=== PATIENT | female | born 1940 | race Caucasian/White ===

== ENCOUNTER 2016-09-29 18:30 | Emergency (ER) | payer OTHER, MEDICAID ==
[~2016-09-29] VITALS: Ht 154.9 cm; Wt 90.7 kg
[~2016-09-29 18:30] MED LIST: ACTOS30 MG; FOLIC ACID 1 MG; LACTULOSE; LORATADINE 10MG; METOPROLOL50 M1 PO; PIOGLITAZONE 30 MG; PROPRANOLOL 20 MG; VICODIN 5/500 M1 TAB PO; [UNRECOGNIZED DRUG - REMARK]; [UNRECOGNIZED DRUG - REMARK]
[2016-09-29 19:30] VITALS: BP 155/79
--- NOTE | 2016-09-29 19:49 | NUR ---
PT TAKEN TO BED 5
--- NOTE | 2016-09-29 20:00 | NUR ---
76 yo female PATIENT PRESENTS TO ED WITH neck pain x2 days, productive cough . DENIES N/V/D; SKIN IS PINK/WARM/DRY; AAOX4 WITH EVEN AND STEADY GAIT; LUNGS CLEAR BL; HR EVEN AND REGULAR; PT DENIES ANY FEVER, CP, SOB, AT THIS TIME; PATIENT STATES PAIN OF 7/10 AT THIS TIME; VSS; PATIENT POSITIONED FOR COMFORT; HOB ELEVATED; BEDRAILS UP X2; BED DOWN. ER MD MADE AWARE OF PT STATUS.
--- NOTE | 2016-09-29 20:10 | NUR ---
PT TAKEN TO CT
--- NOTE | 2016-09-29 20:21 | NUR ---
PT RETURN FROM CT
--- NOTE | 2016-09-29 21:17 | NUR ---
Dr. Schwartz evaluating patient at bedside.
[2016-09-29] MEDS ORDERED: ALBUTEROL 0.083% 2.5 MG/3 ML NEBU INH ONE (21:25)
[2016-09-29] MEDS ORDERED: KETOROLAC 60 MG/2 ML VIAL IM ONE (21:25)
[2016-09-29 22:41] VITALS: BP 153/75
--- NOTE | 2016-09-29 22:42 | NUR ---
Patient discharged with v/s stable. Written and verbal after care instructions given and explained. Patient alert, oriented and verbalized understanding of instructions. Ambulatory with steady gait. All questions addressed prior to discharge. ID band removed. Patient advised to follow up with PMD. Rx of AMOXICIIN 5OOMG, TRAMADOL 50MG PO given. Patient educated on indication of medication including possible reaction and side effects. Opportunity to ask questions provided and answered.
== END 2016-09-29 22:42 | disposition home or self-care (01) ==
LOC: MED 18:30
DX: M43.6 Torticollis (principal); J44.9 Chronic obstructive pulmonary disease, unspecified; I10 Essential (primary) hypertension; J45.909 Unspecified asthma, uncomplicated; E11.9 Type 2 diabetes mellitus without complications; K21.9 Gastro-esophageal reflux disease without esophagitis
CPT/HCPCS: 71250; 72125; 94640; 94664; 96372; 99284; J1885; J7613

== ENCOUNTER 2018-01-03 19:56 | Emergency (ER) | payer OTHER, MEDICAID ==
[~2018-01-03] VITALS: Ht 152.4 cm; Wt 77.1 kg
[~2018-01-03 19:56] MED LIST changes: -ACTOS30 MG; -FOLIC ACID 1 MG; -LACTULOSE; -LORATADINE 10MG; -METOPROLOL50 M1 PO; -PIOGLITAZONE 30 MG; -PROPRANOLOL 20 MG; +VIC PO; -VICODIN 5/500 M1 TAB PO; -[UNRECOGNIZED DRUG - REMARK]; -[UNRECOGNIZED DRUG - REMARK]
[2018-01-03 20:09] VITALS: BP 103/77
--- NOTE | 2018-01-03 20:13 | NUR ---
TO LOBBY A/W BED, AKILAH, VSS. PATIENT WAS GIVEN A URINE CUP
--- NOTE | 2018-01-03 21:02 | NUR ---
TO ER BED 3
--- NOTE | 2018-01-03 21:20 | NUR ---
PATIENT PRESENTS TO ED WITH LOWER BACK AND FLANK PAIN X3 DAYS . PT DENIES N/V/D; SKIN IS PINK/WARM/DRY; AAOX4 WITH EVEN AND STEADY GAIT; LUNGS CLEAR BL; HR EVEN AND REGULAR; PT DENIES ANY FEVER, CP, SOB, OR COUGH AT THIS TIME; PATIENT STATES PAIN OF 7/10 AT THIS TIME; VSS; PATIENT POSITIONED FOR COMFORT; HOB ELEVATED; BEDRAILS UP X1; BED DOWN. ER MD MADE AWARE OF PT STATUS.
[2018-01-03] MEDS ORDERED: DIAZEPAM 5 MG TAB PO ONE (21:35)
[2018-01-03] MEDS ORDERED: KETOROLAC 30 MG/ML VIAL IM ONE (21:35)
[2018-01-03 22:42] LABS: ALBUMIN 3.8 g/dL (3.4-5.0); ANION GAP 10.6 (8-16); ASPARTATE AMINOTRANSFERASE 15 U/L (15-37); CARBON DIOXIDE 27.5 mmol/L (21-32); CHLORIDE 106 mmol/L (98-107); CREATININE 1.1 mg/dL (0.6-1.3); GLUCOSE 114 mg/dL (74-106); POTASSIUM 4.1 mmol/L (3.5-5.1); SODIUM SERUM 140 mmol/L (136-145); TOTAL BILIRUBIN 0.1 mg/dL (0.0-1.0); UREA NITROGEN, BLOOD 14 mg/dL (7-18)
[2018-01-03] MEDS ORDERED: HYDROcodone/APAP 5/325 MG 1 TAB TAB PO ONE (23:05)
[2018-01-04 00:15] VITALS: BP 100/52
--- NOTE | 2018-01-04 00:15 | NUR ---
Patient discharged with v/s stable. Written and verbal after care instructions given and explained. Patient alert, oriented and verbalized understanding of instructions. Ambulatory with steady gait. All questions addressed prior to discharge. ID band removed. Patient advised to follow up with PMD. Rx of COLACE, NORCO given. Patient educated on indication of medication including possible reaction and side effects. Opportunity to ask questions provided and answered.
== END 2018-01-04 00:14 | disposition home or self-care (01) ==
LOC: MED 19:56
DX: G89.29 Other chronic pain (principal); M54.5 Low back pain; M13.861 Other specified arthritis, right knee; J45.909 Unspecified asthma, uncomplicated; E11.9 Type 2 diabetes mellitus without complications; K21.9 Gastro-esophageal reflux disease without esophagitis; I10 Essential (primary) hypertension; Z90.49 Acquired absence of other specified parts of digestive tract; Z79.899 Other long term (current) drug therapy
CPT/HCPCS: 36415; 72131; 73562; 80053; 96372; 99285; J1885; Q0092

== ENCOUNTER 2018-05-27 19:59 | Emergency (ER) | payer OTHER, MEDICAID ==
[~2018-05-27] VITALS: Ht 149.9 cm; Wt 81.6 kg
[2018-05-27 20:01] VITALS: BP 151/76
--- NOTE | 2018-05-27 20:08 | NUR ---
PT TAKEN TO BED 1
--- NOTE | 2018-05-27 21:06 | NUR ---
PT BIB SELF C/O HIGH BLOOD PRESSURE AND NECK PAIN SINCE THIS AM. PT DENIES N/V/D, OR VISION CHANGES. PT IS AWAKE AND LAYING IN BED W/ FAMILY AT BEDSIDE. PT STATES SHE HAS HOME HEALTH NURSE WHO COMES TO TAKE HER BP AND GIVE HER MEDS AND NURSE REFERRED HER TO ER. PT STATES SHE TOOK HER MEDS TODAY. PMH HTN
[2018-05-27] MEDS ORDERED: KETOROLAC 60 MG/2 ML VIAL IM ONE (21:25)
--- NOTE | 2018-05-27 22:00 | NUR ---
PT STATES SHE HAS PAIN RELIEF, 09/27 AT THIS TIME, ER MD MADE AWARE.
[2018-05-27 22:35] VITALS: BP 142/62
== END 2018-05-27 22:32 | disposition home or self-care (01) ==
LOC: MED 19:59
DX: S13.9XXA Sprain of joints and ligaments of unspecified parts of neck, initial encounter (principal); J45.909 Unspecified asthma, uncomplicated; K21.9 Gastro-esophageal reflux disease without esophagitis; E11.9 Type 2 diabetes mellitus without complications; I10 Essential (primary) hypertension; Z79.1 Long term (current) use of non-steroidal anti-inflammatories (NSAID); X58.XXXA Exposure to other specified factors, initial encounter; Y93.89 Activity, other specified; Y92.89 Other specified places as the place of occurrence of the external cause; Y99.8 Other external cause status
CPT/HCPCS: 96372; 99283; J1885

== ENCOUNTER 2019-03-27 22:06 | Emergency (ER) | payer OTHER, MEDICAID ==
[~2019-03-27] VITALS: Ht 149.9 cm; Wt 73.5 kg
[2019-03-27 22:10] VITALS: BP 120/76
--- NOTE | 2019-03-27 22:15 | NUR ---
PT TAKEN TO BED 8
--- NOTE | 2019-03-27 22:35 | NUR ---
Dr. Scott examining patient.
--- NOTE | 2019-03-27 22:54 | NUR ---
PT WENT TO CT
[2019-03-27] MEDS ORDERED: KETOROLAC 30 MG/ML VIAL IM ONE (22:55)
[2019-03-27] MEDS ORDERED: DIAZEPAM 5 MG TAB PO ONE (22:55)
--- NOTE | 2019-03-27 23:08 | NUR ---
PT RETURN FROM CT
[2019-03-27 23:11] LABS: APPEARANCE,URINE CLEAR (CLEAR); BILIRUBIN,URINE NEGATIVE (NEGATIVE); BLOOD, URINE TRACE-L (NEGATIVE); COLOR,URINE YELLOW (YELLOW); LEUKOCYTE ESTERASE ,URINE NEGATIVE (NEGATIVE); NITRITE, URINE NEGATIVE (NEGATIVE); PH,URINE 5.5 (5.0-9.0); UGLUCOSE NEGATIVE (NEGATIVE)
[2019-03-27 23:25] LABS: RBC,URINE 0-5 /HPF (0-5); WBC,URINE 0-5 /HPF (0-5)
[2019-03-28 00:34] VITALS: BP 122/68
--- NOTE | 2019-03-28 00:34 | NUR ---
DISCHARGE PAPERS GIVEN TO PT. PT STATES PAIN DECREASED 4/10 AND TOLLERABLE. VSS. RX OF VALIUM GIVEN. SIDE EFFECTS EXPLAINED. INSTRUCTED TO F/U WITH PCP AND WHEN TO RETURN TO ER. PT VERBALLIZED UNDERSTANDING OF DC INSTRUCTIONS. ALL QUESTIONS ANSWERED.
== END 2019-03-28 00:34 | disposition home or self-care (01) ==
LOC: MED 22:06
DX: M54.5 Low back pain (principal); R10.84 Generalized abdominal pain; J45.909 Unspecified asthma, uncomplicated; E11.9 Type 2 diabetes mellitus without complications; K21.9 Gastro-esophageal reflux disease without esophagitis; I10 Essential (primary) hypertension; Z79.899 Other long term (current) drug therapy
CPT/HCPCS: 74176; 81001; 87086; 96372; 99284; J1885

== ENCOUNTER 2019-05-04 18:23 | Emergency (ER) | payer OTHER, MEDICAID ==
[~2019-05-04] VITALS: Ht 149.9 cm; Wt 74.0 kg
[2019-05-04 18:28] VITALS: BP 186/92
[2019-05-04] MEDS ORDERED: KETOROLAC 30 MG/ML VIAL IM ONE (20:10)
[2019-05-04 20:40] VITALS: BP 145/73
== END 2019-05-04 20:41 | disposition home or self-care (01) ==
LOC: MED 18:23
DX: N30.90 Cystitis, unspecified without hematuria (principal); K21.9 Gastro-esophageal reflux disease without esophagitis; I10 Essential (primary) hypertension; Z86.79 Personal history of other diseases of the circulatory system; Z79.1 Long term (current) use of non-steroidal anti-inflammatories (NSAID)
CPT/HCPCS: 96372; 99283; J1885

== ENCOUNTER 2019-07-20 21:24 | Emergency (ER) | payer OTHER, MEDICAID ==
[~2019-07-20] VITALS: Ht 149.9 cm; Wt 66.7 kg
[2019-07-20 21:30] VITALS: BP 133/80
--- NOTE | 2019-07-20 21:33 | NUR ---
TO LOBBY A/W BED AMBULATORY
--- NOTE | 2019-07-20 22:21 | NUR ---
78 Y/O MALE PRESENTS TO ED, C/O RIGHT BIG TOE PAIN 02/24. PT STATES SEEING [employer]IP [employer] 2 WEEKS AGO AND HAD INGROWN TOENAIL REMOVED ON RIGHT BIG TOE. PT STATES PAIN WORSENED AFTER PROCEDURE. NOTABLE REDNESS AND SWELLING ON AFFECTED TOE; WARM TO TOUCH. PT TOOK TWO TYLENOLS 1 HR PRIOR TO ARRIVAL TO ED; INEFFECTIVE. PT ABLE TO AMBULATE WITH SLOW STEADY GAIT. PT AT STABLE CONDITION. ERMD AWARE. WILL CONTINUE TO MONITOR.
[2019-07-20 22:30] VITALS: BP 138/67
--- NOTE | 2019-07-20 22:30 | NUR ---
PT DISCHARGED WITH PAPERWORK. RX KEFLEX. EDUCATED PT REGARDING MEDICATION. EDUCATED PT REGARDING D/C DIAGNOSIS AND INSTRUCTIONS. PT VERBALIZED UNDERSTANDING OF TEACHING. TOLD PT TO FOLLOW UP WITH PCP AND WHEN TO RETURN TO ED. PT AT STABLE CONDITION. PT STATES SOME PAIN RELIEF AFTER PROCEDURE. PT ABLE TO AMBULATE WITH SLOW STEADY GAIT. ALL QUESTIONS ANSWERED.
== END 2019-07-20 22:30 | disposition home or self-care (01) ==
LOC: MED 21:24
DX: L60.0 Ingrowing nail (principal); L03.031 Cellulitis of right toe; J45.909 Unspecified asthma, uncomplicated; K21.9 Gastro-esophageal reflux disease without esophagitis; I10 Essential (primary) hypertension; Z79.899 Other long term (current) drug therapy
CPT/HCPCS: 11730; 99283

== ENCOUNTER 2019-09-25 07:19 | Emergency (ER) | payer OTHER, MEDICAID ==
[~2019-09-25] VITALS: Ht 149.9 cm; Wt 68.9 kg
[2019-09-25 07:23] VITALS: BP 143/82
--- NOTE | 2019-09-25 07:35 | NUR ---
AAO X4 PT AMBULATE TO BED 8 BIB W/ C/O RIGHT BIG TOE PAIN S/P INGROWN TOENAIL REMOVAL X 5 DAYS IN [place] IN A DOCTORS OFFICE. PER PT TOOK PRESCRIBED IBUPROFEN W/O RELIEF AND UNABLE TO SLEEP D/T PAIN. RT TOE DISCOLORATION NOTED. MED HX: ASTHMA, CARDIAC DISORDER, GERD,HTN
[2019-09-25] MEDS ORDERED: traMADol 50 MG TAB PO ONE (08:15)
[2019-09-25 09:00] VITALS: BP 148/78
--- NOTE | 2019-09-25 09:00 | NUR ---
Patient discharged with v/s stable. Written and verbal after care instructions given and explained. Patient alert, oriented and verbalized understanding of instructions. Ambulatory with steady gait. All questions addressed prior to discharge. ID band removed. Patient advised to follow up with PMD. Rx of Ultram given. Patient educated on indication of medication including possible reaction and side effects. Opportunity to ask questions provided and answered. Pt accompanied by .
== END 2019-09-25 09:00 | disposition home or self-care (01) ==
LOC: MED 07:19
DX: G89.18 Other acute postprocedural pain (principal); M79.675 Pain in left toe(s); J45.909 Unspecified asthma, uncomplicated; K21.9 Gastro-esophageal reflux disease without esophagitis; I10 Essential (primary) hypertension; Z79.899 Other long term (current) drug therapy
CPT/HCPCS: 99283

== ENCOUNTER 2021-05-20 23:36 | Emergency (ER) | payer OTHER, MEDICAID ==
[~2021-05-20] VITALS: Ht 154.9 cm; Wt 74.8 kg
[2021-05-20 23:49] VITALS: BP 153/77
--- NOTE | 2021-05-21 00:26 | NUR ---
PT TAKEN TO BED 1
[2021-05-21] MEDS ORDERED: METOCLOPRAMIDE 10 MG/2 ML INJ VIAL IVP ONE (01:05)
[2021-05-21] MEDS ORDERED: diphenhydrAMINE 50 MG/ML VIAL IVP ONE (01:05)
[2021-05-21] MEDS ORDERED: NACL 0.9% 500 ML IV ONE (01:05)
[2021-05-21 01:20] LABS: BASOPHILS # (AUTO) 0.1 K/uL (0.00-0.22); EOSINOPHILS # (AUTO) 0.3 K/uL (0-0.4); EOSINOPHILS % (AUTO) 5.3 % (0.0-4.0); HEMATOCRIT 34.3 % (36-48); HEMOGLOBIN 11.6 g/dL (12.0-16.0); LYMPHOCYTES # (AUTO) 1.6 K/uL (2.5-16.5); LYMPHOCYTES % (AUTO) 27.9 % (20.5-51.1); MEAN CORPUSCULAR HEMOGLOBIN 33 pg (27-31); MEAN CORPUSCULAR HGB CONC 34 g/dL (33-37); MONOCYTES # (AUTO) 0.2 K/uL (0.8-1.0); MONOCYTES % (AUTO) 4.1 % (1.7-9.3); NEUTROPHILS # (AUTO) 3.5 K/uL (1.8-7.7); NEUTROPHILS % (AUTO) 60.7 % (42.2-75.2); PLATELET COUNT (AUTO) 249 K/uL (140-450); RED BLOOD CELL COUNT(AUTO) 3.54 MIL/uL (4.20-5.40); RED CELL DISTRIBUTION WIDTH 13.3 % (11.6-13.7); WHITE BLOOD COUNT (AUTO) 5.7 K/uL (4.8-10.8)
[2021-05-21 01:33] LABS: ALBUMIN 3.7 g/dL (3.4-5.0); ANION GAP 11.3 (8-16); ASPARTATE AMINOTRANSFERASE 18 U/L (15-37); CARBON DIOXIDE 28.1 mmol/L (21-32); CHLORIDE 106 mmol/L (98-107); CREATININE 1.2 mg/dL (0.6-1.3); GLUCOSE 123 mg/dL (74-106); POTASSIUM 3.4 mmol/L (3.5-5.1); SODIUM SERUM 142 mmol/L (136-145); TOTAL BILIRUBIN 0.2 mg/dL (0.0-1.0); UREA NITROGEN, BLOOD 14 mg/dL (7-18)
--- NOTE | 2021-05-21 01:49 | NUR ---
patient ambulated to the bathroom for urine collection
[2021-05-21] MEDS ORDERED: ACETAMINOPHEN 325 MG TAB PO ONE (01:55)
[2021-05-21] MEDS ORDERED: ACETAMINOPHEN EXTRA STRENGTH 500 MG TAB ONE (03:19)
[2021-05-21 03:50] VITALS: BP 116/68
--- NOTE | 2021-05-21 03:50 | NUR ---
Patient discharged with v/s stable. Written and verbal after care instructions given and explained. Patient verbalized understanding. Ambulatory with steady gait. All questions addressed prior to discharge. Advised to follow up with PMD.
== END 2021-05-21 03:50 | disposition home or self-care (01) ==
LOC: MED 23:36
DX: R51.9 Headache, unspecified (principal); R22.43 Localized swelling, mass and lump, lower limb, bilateral; J45.909 Unspecified asthma, uncomplicated; K21.9 Gastro-esophageal reflux disease without esophagitis; E11.9 Type 2 diabetes mellitus without complications; I11.0 Hypertensive heart disease with heart failure; I50.9 Heart failure, unspecified; Z79.891 Long term (current) use of opiate analgesic
CPT/HCPCS: 36415; 70450; 71045; 80053; 83880; 85025; 96361; 96374; 96375; 99285; J1200; J2765; J7030

== ENCOUNTER 2021-09-22 14:48 | Emergency (ER) | payer OTHER, MEDICAID ==
[~2021-09-22] VITALS: Ht 154.9 cm; Wt 78.9 kg
[2021-09-22 14:56] VITALS: BP 127/76
--- NOTE | 2021-09-22 15:20 | NUR ---
81 Y/O FEMALE WITH C/O LEFT FLANK RADIATING TO LOWER BACK PAIN X 1 DAY. AOX, ABLE TO MAKE ALL NEEDS KNOWN. RESP EVEN AND UNLABORED. LUNGS CLEAR UPON AUSCULTATION, TRACHEA IS MIDLINE. PT DENIES AND FALLS TO LOWER BACK. DENIES N/V/D/CP AT THIS TIME. ABD IS SOFT AND NON-TENDER. PMHX: HLD, HTN, GERD, ASTHMA HOME MEDS: SEE LIST ALLERGIES: DENIES
--- NOTE | 2021-09-22 15:26 | NUR ---
US at bedside to perform procedure
--- NOTE | 2021-09-22 15:35 | NUR ---
XRAY AT PATIENT BEDSIDE
--- NOTE | 2021-09-22 15:44 | NUR ---
Urine dipped and results shown to PAMELA Aaron.
[2021-09-22 15:48] LABS: BASOPHILS % (AUTO) 0.8 % (0.0-2.0); EOSINOPHILS # (AUTO) 0.2 K/uL (0-0.4); EOSINOPHILS % (AUTO) 3.2 % (0.0-4.0); HEMATOCRIT 35.9 % (36-48); HEMOGLOBIN 12.4 g/dL (12.0-16.0); LYMPHOCYTES # (AUTO) 2.1 K/uL (2.5-16.5); LYMPHOCYTES % (AUTO) 39.5 % (20.5-51.1); MEAN CORPUSCULAR HEMOGLOBIN 32 pg (27-31); MEAN CORPUSCULAR HGB CONC 34 g/dL (33-37); MONOCYTES # (AUTO) 0.3 K/uL (0.8-1.0); MONOCYTES % (AUTO) 6.3 % (1.7-9.3); NEUTROPHILS # (AUTO) 2.6 K/uL (1.8-7.7); NEUTROPHILS % (AUTO) 50.2 % (42.2-75.2); PLATELET COUNT (AUTO) 284 K/uL (140-450); RED BLOOD CELL COUNT(AUTO) 3.82 MIL/uL (4.20-5.40); RED CELL DISTRIBUTION WIDTH 12.4 % (11.6-13.7); WHITE BLOOD COUNT (AUTO) 5.2 K/uL (4.8-10.8)
--- NOTE | 2021-09-22 15:55 | NUR ---
EKG done and shown to PAMELA Aaron
[2021-09-22 16:00] LABS: APPEARANCE,URINE CLEAR (CLEAR); BILIRUBIN,URINE NEGATIVE (NEGATIVE); BLOOD, URINE TRACE-I (NEGATIVE); COLOR,URINE YELLOW (YELLOW); LEUKOCYTE ESTERASE ,URINE NEGATIVE (NEGATIVE); NITRITE, URINE NEGATIVE (NEGATIVE); UGLUCOSE NEGATIVE (NEGATIVE)
[2021-09-22 16:26] LABS: ANION GAP 14.6 (8-16); ASPARTATE AMINOTRANSFERASE 23 U/L (15-37); CARBON DIOXIDE 27.5 mmol/L (21-32); CHLORIDE 101 mmol/L (98-107); CREATININE 1.1 mg/dL (0.6-1.3); GLUCOSE 98 mg/dL (74-106); POTASSIUM 4.1 mmol/L (3.5-5.1); SODIUM SERUM 139 mmol/L (136-145); TOTAL BILIRUBIN 0.3 mg/dL (0.0-1.0); UREA NITROGEN, BLOOD 17 mg/dL (7-18)
[2021-09-22] MEDS ORDERED: MORPHINE SULFATE 2 MG/ML SYR IVP ONE (16:40)
--- NOTE | 2021-09-22 17:20 | NUR ---
Patient appears to be resting comfortably in bed. Vital Signs within normal limits. Respirations even and unlabored.
[2021-09-22 19:05] VITALS: BP 127/76
--- NOTE | 2021-09-22 19:05 | NUR ---
Patient discharged with v/s stable. Written and verbal after care instructions given and explained with teachback. Patient verbalized understanding. Ambulatory with steady gait. All questions addressed prior to discharge. Advised to follow up with PMD.
== END 2021-09-22 19:05 | disposition home or self-care (01) ==
LOC: MED 14:48
DX: M54.50 Low back pain, unspecified (principal); R10.9 Unspecified abdominal pain; J45.909 Unspecified asthma, uncomplicated; K21.9 Gastro-esophageal reflux disease without esophagitis; I10 Essential (primary) hypertension; E78.5 Hyperlipidemia, unspecified; Z98.890 Other specified postprocedural states; Z79.891 Long term (current) use of opiate analgesic
CPT/HCPCS: 36415; 71045; 74176; 80053; 81003; 81025; 84484; 85025; 93005; 96374; 99284; J2270; Q0092

== ENCOUNTER 2022-02-16 19:35 | Emergency (ER) | payer OTHER, MEDICAID ==
[~2022-02-16] VITALS: Ht 154.9 cm; Wt 81.4 kg
[2022-02-16 19:41] VITALS: BP 157/80
--- NOTE | 2022-02-16 19:44 | NUR ---
PT TO BED4
[2022-02-16] MEDS ORDERED: KETOROLAC 30 MG/ML VIAL IM ONE (20:00)
[2022-02-16] MEDS ORDERED: HYDROcodone/APAP 5/325 MG 1 TAB TAB PO ONE (20:00)
--- NOTE | 2022-02-16 20:02 | NUR ---
81 Y.O. F BIB SELF C/O 10 LOWER BACK PAIN XYESTERDAY. STATES SHE TAKES TYLENOL WITH NO RELIEF. PT STATESD THAT SHE FRACTURED HER LOWER BACK ABOUT 3 TO 4 YEARS AGO AT [facility]. NO SOB, CHEST PAIN, AND N/V/D. A&OX4, SKIN INTACT, STAEDY GAIT, AND VITALS WNL FOR PT. HX:HTN, GERD, ASTHMA, GASTRITIS NKA
[2022-02-16] MEDS ORDERED: ACET-8386 PO (20:37)
[2022-02-16] MEDS ORDERED: NAPR-54 PO (20:37)
--- NOTE | 2022-02-16 20:52 | NUR ---
Patient discharged with v/s stable. Written and verbal after care instructions given and explained. Patient alert, oriented and verbalized understanding of instructions. Ambulatory with steady gait. All questions addressed prior to discharge. ID band removed. Patient advised to follow up with PMD. Rx of NAPROXEN AND [id number] given. Patient educated on indication of medication including possible reaction and side effects. Opportunity to ask questions provided and answered.
== END 2022-02-16 20:52 | disposition home or self-care (01) ==
LOC: MED 19:35
DX: M54.50 Low back pain, unspecified (principal); G89.29 Other chronic pain; J45.909 Unspecified asthma, uncomplicated; K21.9 Gastro-esophageal reflux disease without esophagitis; I10 Essential (primary) hypertension; Z79.1 Long term (current) use of non-steroidal anti-inflammatories (NSAID); Z79.891 Long term (current) use of opiate analgesic
CPT/HCPCS: 81002; 96372; 99283; J1885

== ENCOUNTER 2022-05-17 18:48 | Emergency (ER) | payer OTHER, MEDICAID ==
[~2022-05-17] VITALS: Ht 160 cm; Wt 85.7 kg
[~2022-05-17 18:48] MED LIST changes: +ACET-8386 PO; +NAPR-54 PO
[2022-05-17 18:53] VITALS: BP 170/91
--- NOTE | 2022-05-17 21:04 | NUR ---
Patient ambulated to bed 12.
--- NOTE | 2022-05-17 21:20 | NUR ---
PT PLACED IN BED 12, PT C/O RIGHT KNEE PAIN X SEVERAL MONTHS, PT AMBULATED TO RESTROOM WITH UPRIGHT STEADY GAIT, NO SWEELING OR REDNESS OBSERVED.
[2022-05-17] MEDS ORDERED: ACETAMINOPHEN 325 MG TAB PO ONE (21:25)
[2022-05-17] MEDS ORDERED: LIDOCAINE 5% 1 EA PATCH TP ONE (21:25)
[2022-05-17] MEDS ORDERED: LID5T TP (21:38)
[2022-05-17 22:10] VITALS: BP 161/68
--- NOTE | 2022-05-17 22:15 | NUR ---
Patient discharged with v/s stable. Written and verbal after care instructions given and explained. Patient alert, oriented and verbalized understanding of instructions. Ambulatory with steady gait. All questions addressed prior to discharge. ID band removed. Patient advised to follow up with PMD. Rx of LIDODERM PATCH given. Patient educated on indication of medication including possible reaction and side effects. Opportunity to ask questions provided and answered.
== END 2022-05-17 22:03 | disposition home or self-care (01) ==
LOC: MED 18:48
DX: M25.561 Pain in right knee (principal); M54.50 Low back pain, unspecified; J45.909 Unspecified asthma, uncomplicated; I10 Essential (primary) hypertension; K21.9 Gastro-esophageal reflux disease without esophagitis; Z79.899 Other long term (current) drug therapy
CPT/HCPCS: 99283